=== PATIENT | female | born 1995 | race Caucasian/White ===

== ENCOUNTER 2018-02-14 02:15 | Emergency (ER) | payer OTHER ==
[~2018-02-14] VITALS: Ht 177.8 cm; Wt 79.4 kg
[2018-02-14 02:16] VITALS: BP 124/70
--- NOTE | 2018-02-14 02:23 | NUR ---
PT TAKEN TO BED 3
--- NOTE | 2018-02-14 02:30 | NUR ---
came in with c/o burning sensation , when she urinate, started this afternoon, with frequency and urgency, dysuria, and blood in her urine.
--- NOTE | 2018-02-14 02:41 | NUR ---
Patient being evaluated by physician at bedside.
[2018-02-14 02:45] VITALS: BP 124/70
--- NOTE | 2018-02-14 02:45 | NUR ---
Patient discharged with v/s stable. Written and verbal after care instructions given and explained Dr. Ruano. Patient alert, oriented and verbalized understanding of instructions. Ambulatory with steady gait. All questions addressed prior to discharge. ID band removed. Patient advised to follow up with PMD. Rx of given. Patient educated on indication of medication including possible reaction and side effects. Opportunity to ask questions provided and answered.
== END 2018-02-14 02:45 | disposition home or self-care (01) ==
LOC: MED 02:15
DX: N39.0 Urinary tract infection, site not specified (principal)
CPT/HCPCS: 81002; 81025; 99283